=== PATIENT | female | born 1950 | race Caucasian/White ===

== ENCOUNTER 2019-12-09 00:59 | Outpatient (CLI) | payer MEDICARE, SELFPAY ==
--- NOTE | 2019-12-09 11:20 | DI.MAMMO_ITS ---
EXAM: MAMMO SCREENING CLINICAL HISTORY: SCREENING, Z12.31 TECHNIQUE: Mammograms were interpreted according to the usual protocol including computer analysis w [employer] CAD system, tomosynthesis and C-view imaging. COMPARISON: . 2018 FINDINGS: The breasts are composed of heterogeneously dense fibroglandular densities, Breast Density category C . No suspicious masses or suspicious microcalcifications are seen. No skin thickening or abnormal axillary lymph nodes are seen. There has been no significant change from prior exams. IMPRESSION: BIRADS Category 1, negative mammogram. Yearly screening mammography is recommended. BREAST DENSITY: The mammogram demonstrates the patient's breast tissue is dense. Dense breast tissue is very common and is not abnormal but dense breast tissue can make it harder to find cancer on a ma mmogram. Also, dense breast tissue may increase their breast cancer risk. This information about the result of the mammogram report was provided to the patient to raise their awareness. Use this report when you speak with the patient about their risks for breast cancer, which includes their family hist ory. At that time, you may recommend for more screening tests (Ultrasound or MRI) as they might be us eful based on their risk. A negative radiographic report should not delay biopsy if a dominant or clinically suspicious mass is present. Up to ten percent of cancers are not identified on mammography. A negative report may reinforce clinical impression. Adenosis and dense breasts may obscure an underlying neoplasm. False positive reports average 6 to 10%.
== END 2019-12-09 01:19 ==
PROVIDERS: PCP Family Medicine; Visit Provider Family Medicine
DX: Z12.31 Encounter for screening mammogram for malignant neoplasm of breast (principal)
CPT/HCPCS: 77063; 77067

== ENCOUNTER 2020-07-13 08:42 | Outpatient (REF) | payer MEDICARE, SELFPAY ==
[2020-07-13 21:18] LABS: HCT 40.5 % (36.0-46.0); HGB 12.8 g/dL (11.2-15.7); MCHC 31.6 % (32.0-36.0); MCV 88.6 fL (80-95); MPV 10.2 fL (8.0-11.0); Platelet Count 178 10^3/uL (130-400); RBC 4.57 10^6/uL (3.93-5.22); RDW 13.5 % (11.7-14.6); WBC 5.51 10^3/uL (4.4-10.8)
[2020-07-13 21:31] LABS: ALT 23 U/L (14-59); AST 18 U/L (15-37); Albumin 3.8 g/dL (3.4-5.0); Alkaline Phosphatase 62 U/L (46-116); Anion Gap 5.3 mmol/L (3-11); BUN 28 mg/dL (7-18); Bilirubin, Total 0.4 mg/dL (0.2-1.0); CO2 30.7 mmol/L (21.0-32.0); CREATININE 0.92 mg/dL (0.55-1.02); Calcium 8.8 mg/dL (8.5-10.1); Calculated LDL 102 mg/dL (<100); Chloride 111 mmol/L (98-107); Cholesterol 186 mg/dL (<200); Glucose 119 mg/dL (74-106); HDL Cholesterol 62 mg/dL (40-60); Potassium 5.2 mmol/L (3.5-5.1); Sodium 147 mmol/L (136-145); Total Protein 7.3 g/dL (6.4-8.2); Triglyceride 113 mg/dL (<150)
== END 2020-07-13 09:02 ==
LOC: NCHCN 08:42
PROVIDERS: PCP Family Medicine; Visit Provider Family Medicine
DX: I10 Essential (primary) hypertension (principal); E11.9 Type 2 diabetes mellitus without complications
CPT/HCPCS: 80053; 80061; 85027

== ENCOUNTER 2021-07-20 09:45 | Outpatient (REF) | payer MEDICARE, SELFPAY ==
[2021-07-20 16:23] LABS: ALT 22 U/L (14-59); AST 16 U/L (15-37); Albumin 3.9 g/dL (3.4-5.0); Alkaline Phosphatase 70 U/L (46-116); BUN 24 mg/dL (7-18); Bilirubin, Total 0.4 mg/dL (0.2-1.0); Calcium 8.8 mg/dL (8.5-10.1); Calculated LDL 87 mg/dL (<100); Chloride 106 mmol/L (98-107); Cholesterol 168 mg/dL (<200); Estimated GFR 54.66 (mL/min/1.73m2); Glucose 111 mg/dL (74-106); HDL Cholesterol 63 mg/dL (40-60); Sodium 143 mmol/L (136-145); Total Protein 7.2 g/dL (6.4-8.2); Triglyceride 94 mg/dL (<150)
[2021-07-21 01:34] LABS: Vitamin D 25 Total 17.4 ng/mL (30-100)
== END 2021-07-20 09:46 | disposition home or self-care (01) ==
LOC: NCHCN 09:45
PROVIDERS: PCP Family Medicine; Referring Provider Family Medicine; Visit Provider Family Medicine
DX: E11.9 Type 2 diabetes mellitus without complications (principal); I10 Essential (primary) hypertension; E66.9 Obesity, unspecified
CPT/HCPCS: 80053; 80061; 82306

== ENCOUNTER 2023-04-04 02:13 | Outpatient (CLI) | payer MEDICARE, SELFPAY ==
--- NOTE | 2023-04-04 | DI.MAMMO_ITS ---
Exam(s) MAMMO SCREENING EXAM: MAMMO SCREENING CLINICAL HISTORY: SCREENING, Z12.31. TECHNIQUE: Bilateral full field digital CC and MLO mammographic images were obtained with 3D tomosyn thesis and utilizing computer aided detection (CAD). COMPARISON: Prior mammograms were reviewed. FINDINGS: There has been no significant change in the appearance and distribution of the fibroglandular tissue. Asymmetric tissue medially in the right breast is unchanged from prior studies. There are no new spiculated masses nor malignant appearing microcalcification groups. There is no significant architectural distortion nor skin thickening-retraction. IMPRESSION: No radiographic evidence of malignancy. BI-RADS Category 1 - Negative Breast Density - Category C - Heterogeneously dense Breast density Category C or D implies that the patient has dense breast tissue. Dense breast tissue can make it harder to find cancer on a mammogram. Dense breast tissue is also associated with an incr eased risk of breast cancer. This information about the result of the mammogram report was provided to the patient to raise their awareness. Use this report when you speak with the patient about their risks for breast cancer, which includes their family history. At that time, you may recommend additional screening tests (Ultrasoun d or MRI) as these tests may add significant information. A negative radiographic report should not delay biopsy if a dominant or clinically suspicious mass is present. Up to ten percent of cancers are not identified on mammography. A negative report may reinforce clinical impression. Adenosis and dense breasts may obscure an underlying neoplasm. False positive reports average 6 to 10%. Patient will receive a letter notifying them of these results.
== END 2023-04-04 02:33 ==
LOC: DI 02:14
PROVIDERS: PCP Family Medicine; Visit Provider Family Medicine
DX: Z12.31 Encounter for screening mammogram for malignant neoplasm of breast (principal)
CPT/HCPCS: 77063; 77067

== ENCOUNTER 2023-07-18 15:53 | Outpatient (REF) | payer MEDICARE, SELFPAY ==
[2023-07-18 17:37] LABS: HCT 43.8 % (36.0-46.0); HGB 13.6 g/dL (11.2-15.7); MCH 28.3 pg (27.0-33.0); MCHC 31.1 % (32.0-36.0); MCV 91 fL (80-95); MPV 9.9 fL (8.0-11.0); Platelet Count 200 10^3/uL (130-400); RBC 4.81 10^6/uL (3.93-5.22); RDW 13.6 % (11.7-14.6); RDW-SD 45.8 fL; WBC 6.67 10^3/uL (4.4-10.8)
[2023-07-18 17:59] LABS: Hemoglobin A1C 6.2 % (<5.7)
[2023-07-18 18:16] LABS: ALT 23 U/L (14-59); AST 15 U/L (15-37); Albumin 3.8 g/dL (3.4-5.0); Alkaline Phosphatase 82 U/L (46-116); Anion Gap 5.1 mmol/L (3-11); BUN 28 mg/dL (7-18); Bilirubin, Total 0.7 mg/dL (0.2-1.0); CO2 30.9 mmol/L (21.0-32.0); Calcium 8.7 mg/dL (8.5-10.1); Calculated LDL 81 mg/dL (<100); Chloride 104 mmol/L (98-107); Cholesterol 158 mg/dL (<200); Estimated GFR 59.49 (mL/min/1.73m2); Glucose 141 mg/dL (74-106); HDL Cholesterol 61 mg/dL (40-60); Potassium 4.8 mmol/L (3.5-5.1); Sodium 140 mmol/L (136-145); Total Protein 7.1 g/dL (6.4-8.2); Triglyceride 83 mg/dL (<150)
== END 2023-07-18 15:54 | disposition home or self-care (01) ==
LOC: NCHCN 15:53
PROVIDERS: PCP Family Medicine; Visit Provider Family Medicine
DX: I10 Essential (primary) hypertension (principal); E11.9 Type 2 diabetes mellitus without complications; E66.9 Obesity, unspecified
CPT/HCPCS: 80053; 80061; 85027; 83036

== ENCOUNTER 2025-08-29 16:57 | Emergency (ER) | payer MEDICARE, SELFPAY ==
[2025-08-29 17:05] VITALS: BP 203/83; PULSE 95; RESP 12; TEMP 36.6; O2SAT 97
--- NOTE | 2025-08-29 18:45 | DI.CT_ITS ---
Exam(s) CT ABDOMEN PELVIS W EXAM: CT ABDOMEN PELVIS W CLINICAL HISTORY: L. flank pain, N/V. TECHNIQUE: Imaging Protocol: Axial computed tomography images with coronal and sagittal reformatted images were created and reviewed CONTRAST MATERIAL: Intravenous: Omnipaque 350 Contrast volume:100 ml Oral: no COMPARISON: No exams were available for comparison FINDINGS: ABDOMEN and PELVIS: Lung Bases: No acute findings. Severe coronary artery calcifications. Liver: Normal density. No suspicious mass. Gallbladder and biliary tract: There is a large stone in the gallbladder fundus. There is an additional stone which is either in the gallbladder neck or proximal cystic duct. No wall thickening or pericholecystic fluid. No biliary dilation. Pancreas: Normal density. No abnormal calcifications or inflammatory process. No evidence of mass. Spleen: Enlarged at 14.5 cm in length. Peripheral calcification. Kidneys: Normal size, contour and axis. No radiodense stones. No obstructive uropathy. No suspicious masses seen. Adrenal glands: No masses seen. Vasculature: Abdominal aorta non-dilated. Soft tissues: Unremarkable. Bladder: No gross wall thickening. No calculi.No focal mass. Bowel: No obstruction. No bowel wall thickening. Appendix normal. There is mild diverticulosis. There is a calcified diverticulum of the distal sigmoid. No evidence of diverticulitis. Peritoneal cavity: No ascites. No focal collection. No mesenteric inflammatory response. No free air. Bones: Unremarkable for age. Reproductive organs: Unremarkable. Lymph nodes: No pathologically enlarged lymph nodes. IMPRESSION:: There is a of stone during 1.8 cm in the gallbladder neck as well as additional large stone, 3 cm in the gallbladder lumen. No findings to suggest acute cholecystitis. No biliary dilatation. Splenomegaly. The preliminary [facility] report was reviewed. RADIATION DOSE DELIVERED: Total DLP DATA REPOSITORY: All CT scans at this facility are submitted to the National Radiology Data Registry (NRDR) Dose Index Registry (DIR) with the [employer] (A[employer]). RADIATION OPTIMIZATION: All CT scans at this facility use at least one of these dose optimization techniques: automated exposure control; mA and/or kV adjustment per patient size (includes targeted exams where dose is matched to clinical indication); or iterative reconstruction.
--- NOTE | 2025-08-29 18:45 | DI.RAD_ITS ---
Exam(s) XR TIB/FIB LT EXAM: XR TIB/FIB LT CLINICAL HISTORY: cellulitis, eval osteo. TECHNIQUE: 2D digital imaging was performed. Two views. COMPARISON: No exams were available for comparison FINDINGS: BONES: No acute fracture is present. There is a question of periosteal reaction involving the mid fibula versus artifact related to edema. There are severe degenerative changes at the knee. There are prominent calcaneal spurs. Significant degenerative changes are noted in the visualized portions of the foot. SOFT TISSUE: Diffuse soft tissue swelling. Vascular calcifications. Soft tissue calcifications consistent with chronic stasis. IMPRESSION: Severe soft tissue edema of the lower leg. Question of periosteal reaction of the mid fibula. MRI could be performed for further evaluation. The preliminary [facility] report was reviewed. DATA REPOSITORY: RADIATION DOSE DELIVERED:
--- NOTE | 2025-08-29 19:13 | ED.GENADUL_ITS ---
Discharge Plan Disposition Patient Disposition: Home Condition: Stable Discharge Details Clinical Impression: Cellulitis and abscess of left lower extremity, Diabetic ulcer of ankle Primary Care Provider: Emmanuelle Ochoa ED Provider: Lillian Martinez Home Meds and New Rx's Prescriptions: New cephalexin 500 mg capsule 500 mg PO QID 9 Days Qty: 36 0RF sulfamethoxazole-trimethoprim [Bactrim DS] 800-160 mg tablet 1 tab PO Q12H 9 Days Qty: 18 0RF No Action furosemide 20 mg tablet 20 mg PO DAILY Patient Comments: TAKE ONE TABLET BY MOUTH EVERY MORNING FOR LEG EDEMA lisinopril 20 mg tablet 20 mg PO DAILY Patient Comments: TAKE ONE TABLET BY MOUTH EVERY DAY Discharge Instructions Instructions: Cellulitis (Skin Infection), Adult ED Additional Instructions: You were seen in the emergency department today for evaluation of a lower extremity infection and nausea with vomiting. In our department you do full physical examination performed, and you had laboratory studies that were quite reassuring. Specifically, there was no evidence of elevation in your white blood cell count, no anemia, your electrolytes look safe and healthy, and your inflammatory markers were quite low. There was no sign of damage to your heart, and your urine did not have any concerning infectious findings other than a very small amount of blood and nitrates, which can be found in certain bacteria that live in the stool and skin. You had a CT scan of your belly that showed some incidental findings such as gallstones and diverticulosis, but did not show any concerning symptoms to explain your vomiting. You had an x-ray of your leg, which does show swelling consistent with a cellulitis (infection in the skin and soft tissue) that we were first concerned for. You did not have any obvious or severe changes to the bones, and the negative inflammatory markers are very reassuring. I have referred you to establish with a terminal superintendent, and should be evaluated within the next week. At that time, they may recommend additional imaging studies to evaluate that small area and ensure that you are healing as expected. Please take all the antibiotics that I prescribed you until they are gone, even if you start to feel better. Maintain good hydration and nutrition, and follow- up with your PCP to discuss this visit and any symptoms that change, worsen, or persist. You can always return to the emergency department if you develop a fever, have worsening of your leg swelling, or have any other symptoms that cause you concern. Thank you for allowing us to be part of your care. Referrals: Virgie Rodrigues DPM [[facility] STAFF PHYSICIAN, Podiatry] - 1 week HPI General Mode of arrival: ambulatory . Date/Time Provider Initiated Documentation: 08/29/25 18:14 . Limitations to Documentation: no limitations . Information obtained by: patient, family and old records reviewed . HPI Narrative: This is a 74-year-old female patient with a past medical history significant for diabetes, presenting for evaluation of lower extremity infection as well as nausea with vomiting. The patient reports that for the last several weeks she has had worsening swelling, redness, and multiple scabs over her left lower extremity. She states that she has a habit of picking at the scabs, has tried multiple topical cleansers at home, has not been on antibiotics for this condition. She reports that she became very very worried that she was going to lose her leg, prompting her to seek care today. Additionally, today she developed nausea and had a few episodes of dry heaving. She endorses some left flank pain. States that she has had a normal bowel movement for her (often has diarrhea due to her glipizide), has a history of but no other surgical history, denies chest pain, fever or chills, new loss of sensation or strength in her lower extremities. Related Data Home Medications ?Medication ?Instructions ?Recorded ?Confirmed cephalexin 500 mg capsule 500 mg PO QID 9 days #36 cap s 08/29/25 furosemide 20 mg tablet 20 mg PO DAILY 08/29/2508/12 lisinopril 20 mg tablet 20 mg PO DAILY 08/29/2508/12 sulfamethoxazole 800 1 tab PO Q12H 9 days #18 tab s 08/29/25 mg-trimethoprim 160 mg tablet (Bactrim DS) Previous Rx's ?Medication ?Instructions ?Recorded cephalexin 500 mg capsule 500 mg PO QID 9 days #36 cap s 08/29/25 sulfamethoxazole 800 1 tab PO Q12H 9 days #18 tab s 08/29/25 mg-trimethoprim 160 mg tablet (Bactrim DS) Allergies Allergy/AdvReac Type Severity Reaction Status Date / Time No Known Allergies Allergy Unverified 08/29/25 21:31 General Stated Complaint: GenMedical TEVIN: 3 Exam Narrative Exam Narrative: Gen: Awake and alert, in no apparent distress HEENT: Non-icteric sclera Neck: Supple Lungs: No apparent respiratory distress, normal respiratory effort. CV: Appears well perfused, heart with regular rate and rhythm, strong distal pulses Abdomen: Non-distended, soft, nontender to palpation without rigidity, rebound, or guarding. There is no CVA tenderness, no overlying skin changes. MSK: Moves 4 extremities without apparent limitation in ROM. The patient has peripheral edema bilaterally, left greater than right, left lower extremity with redness, induration, and warmth compared to the contralateral side, with numerous scabs. No fluctuance or purulent drainage. Right lower extremity with a small area of redness on the anterior roman. The patient's bilateral feet have strong DP pulses. Skin: Visualized skin as noted above Neuro: Normal Gait, no obvious focal deficits or facial asymmetry. Speaks in full, clear sentences. Psych: Appropriate for situation. Course Vital Signs Vital signs: Vital Signs Temperature 36.6 C 08/29/25 17:05 Pulse 95 H 08/29/25 17:05 Respiratory Rate 12 08/29/25 17:05 Blood Pressure 203/83 H 08/29/25 17:05 Pulse Oximetry 97 08/29/25 17:05 Temperature 36.6 C 08/29/25 17:05 Temperature Source Oral 08/29/25 17:05 Pulse 95 H 08/29/25 17:05 Respiratory Rate 12 08/29/25 17:05 Blood Pressure 203/83 H 08/29/25 17:05 Blood Pressure Position Sitting 08/29/25 17:05 Pulse Oximetry 97 08/29/25 17:05 Oxygen Delivery Method Room Air 08/29/25 17:05 Oxygen Flow Rate 0 08/29/25 17:05 Medical Decision Making This is a 74-year-old female patient presenting for evaluation of a lower extremity infection as well as nausea with vomiting and flank pain. My differential includes but is not limited to intra-abdominal pathologies including UTI, pyelonephritis, nephrolithiasis, considered diverticulitis, bowel obstruction, appendicitis, gastroenteritis, gastritis, pancreatitis, mesenteric ischemia and aortic pathology. I also considered cellulitis, osteomyelitis, sepsis/bacteremia. The patient has no evidence for acute arterial occlusion, DVT was considered though an infectious abnormality is far more likely given the exam. We will obtain labs to include CBC, CMP, magnesium, troponin, and lipase. I will also obtain lactate and inflammatory markers. I will obtain a urinalysis, a CT of the abdomen and pelvis, and an x-ray of the left lower extremity. We will provide the patient with a dose of Zofran and Tylenol for initial management of pain. -I independently interpreted the laboratory studies, which show no significant leukocytosis, anemia, or thrombocytopenia. The chemistry panel is without evidence of electrolyte abnormality, kidney dysfunction, or liver injury. Lactate is low, as are the inflammatory markers. Initial troponin negative and without interval increase in 1 hour delta recheck. Lipase is not elevated. Urinalysis with small blood and positive nitrates, with few epithelial cells and no pyuria, making acute urinary tract infection in the absence of dysuria and hematuria symptoms less likely. I reviewed the patient's imaging, her CT abdomen and pelvis does not show any evidence of renal stones, or other acute pathology to explain her nausea. She did have improvement and was able to tolerate oral intake after Zofran doses. She did have some incidental findings including diverticulosis without diverticulitis, cholelithiasis, and splenomegaly. X-ray reveals diffuse edema consistent with the external evidence of cellulitis. Radiology questions a periosteal reaction of the fibula, I have a lower concern for osteomyelitis in this patient with normal inflammatory markers and do not have an ability to get an MRI with and without contrast as recommended. However, I feel that it is reasonable to initiate oral antibiotics, and I have referred her for podiatry reevaluation in the next week so that she can have a reevaluation of her cellulitis and diabetic wounds, and potential repeat imaging at that time can be done. I provided the patient with cephalexin and Bactrim. Prescriptions to her pharmacy were sent for same. At this time, the patient has had a full medical evaluation and is safe for discharge to home. They are hemodynamically stable, ambulatory, and tolerating PO. They are understanding of the follow-up plan and return precautions. They left our facility without incident. Lillian Martinez MD [facility] All Active Problems (Updated 08/29/25 @ 22:18 by Lillian Martinez MD) Diabetic ulcer of ankle (Acute) Cellulitis and abscess of left lower extremity (Acute) Social History Smoking/Tobacco Use Status: Never Smoking risk assessment performed?: Yes Alcohol Intake: never Drug use: Never Do you feel safe at home: Yes Do you feel safe in your relationship?: Yes
[2025-08-29 19:41] LABS: Abs Immature Grans 0.02 10^3/uL (0.0-0.06); HCT 42.2 % (36.0-46.0); HGB 13.7 g/dL (11.2-15.7); Immature Grans % 0.3 %; MCH 27.5 pg (27.0-33.0); MCHC 32.5 % (32.0-36.0); MCV 85 fL (80-95); MPV 9.1 fL (8.0-11.0); Platelet Count 164 10^3/uL (130-400); RBC 4.98 10^6/uL (3.93-5.22); RDW 14.5 % (11.7-14.6); RDW-SD 44.1 fL; WBC 5.95 10^3/uL (4.4-10.8)
[2025-08-29 19:43] LABS: ESR 14 mm/hr (0-30)
[2025-08-29] MEDS: ACETAMINOPHEN 1,000 MG/100 ML BAG 400 MG IVPB (19:44)
[2025-08-29] MEDS: Ondansetron 4 MG/2 ML VIAL IVP ×2 (19:45→21:34)
[2025-08-29 19:56] VITALS: BP 203/83; PULSE 95; RESP 12; TEMP 36.6; O2SAT 97
[2025-08-29 20:02] LABS: ALT 24 U/L (14-59); AST 21 U/L (15-37); Albumin 3.8 g/dL (3.4-5.0); Alkaline Phosphatase 92 U/L (46-116); Anion Gap 9.1 mmol/L (3-11); BUN 18 mg/dL (7-18); Bilirubin, Total 0.9 mg/dL (0.2-1.0); C-Reactive Protein 0.56 mg/dL (<or=0.5); CO2 28.9 mmol/L (21.0-32.0); Calcium 9.0 mg/dL (8.5-10.1); Chloride 102 mmol/L (98-107); Estimated GFR 76.79 (mL/min/1.73m2); Glucose 124 mg/dL (74-106); Lipase 18 U/L (<78); Magnesium 2.1 mg/dL (1.8-2.4); Potassium 4.0 mmol/L (3.5-5.1); Sodium 140 mmol/L (136-145); Total Protein 8.0 g/dL (6.4-8.2); Troponin I 9 ng/L (<or=51)
[2025-08-29 20:04] VITALS: BP 169/67
[2025-08-29] MEDS: Omnipaque 350 MG/ML 100 ML BTL IJ (20:36)
[2025-08-29] MEDS: Normal Saline - Diluent 50 ML VIAL IJ (20:37)
[2025-08-29 21:06] LABS: Troponin I 10 ng/L (<or=51)
[2025-08-29 21:19] VITALS: RESP 18
[2025-08-29] MEDS: Ketorolac 15 MG/ML VIAL IVP (21:34)
--- NOTE | 2025-08-29 21:47 | DI.[facility]_ITS ---
PROCEDURE INFORMATION: Exam: CT Abdomen And Pelvis With Contrast Exam date and time: 08/29/2025 8:44 PM Age: 74 years old Clinical indication: Nausea and vomiting; Abdominal pain; Left; L. Flank pain, n/v TECHNIQUE: Imaging protocol: Computed tomography of the abdomen and pelvis with contrast. COMPARISON: No relevant prior studies available. FINDINGS: Lungs: Lung bases are clear. Liver: The liver has a normal appearance. Gallbladder and biliary ducts: A 2.9 cm in diameter stone is present within the gallbladder fundus. 1.8 cm stone is present within the cystic duct. No gallbladder wall thickening or pericholecystic fluid. Pancreas: The pancreas is atrophic. Spleen: The spleen measures 14.5 cm in length. Some rim calcifications are present along the lateral margins of the spleen. Adrenal glands: The adrenal glands have a normal appearance. Kidneys and ureters: The kidneys are normal in size. No hydronephrosis. No hydroureter or ureterolithiasis. Low-density left cortical renal cysts are noted. Stomach and bowel: A rim calcified 1.8 cm soft tissue mass is present adjacent to the sigmoid colon suggesting a calcified diverticulum (series 4/image 58 and series 8/image 103). Appendix: The appendix is thin walled. Intraperitoneal space: Unremarkable. No free air. No significant fluid collection. Vasculature: There are scattered atheromatous calcifications throughout the aorta and iliac arteries. Lymph nodes: No enlarged lymph nodes. Urinary bladder: The bladder is thin walled and fluid filled. Reproductive: The uterus has a normal appearance. Bones/joints: Bones have a normal appearance. No acute fracture or suspicious bone lesion. Soft tissues: Unremarkable. IMPRESSION: 1. Cholelithiasis. No findings to suggest choledocholithiasis or acute cholecystitis; however, a stone appears lodged in the cystic duct. 2. No other acute intra-abdominal findings. 3. Normal appendix. 4. Splenomegaly. Dictated and Authenticated by: Alisia Franklin MD. Orderin [facility] Inocencio Snyder MD
--- NOTE | 2025-08-29 21:50 | DI.[facility]_ITS ---
PROCEDURE INFORMATION: Exam: XR Left Tibia and Fibula Exam date and time: 08/29/2025 9:01 PM Age: 74 years old Clinical indication: Other: Cellulitis, eval osteo; Additional info: Cellulitis, eval osteo. PT sts diabetic, having trouble w lt lower leg x 3 wks TECHNIQUE: Imaging protocol: Radiologic exam of the left tibia and fibula. Views: 2 views. COMPARISON: No relevant prior studies available. FINDINGS: Bones/joints: No acute fracture or dislocation. Although difficult to characterize, there may be some periosteal reaction within the fibular diaphysis. There is marked calcaneal spurring. Severe degenerative changes are present at the knee joint. Soft tissues: Severe soft tissue swelling and edema is present throughout the subcutaneous fat of the inferior left lower extremity. There are scattered atheromatous vascular calcifications throughout the soft tissues. IMPRESSION: 1. Marked edema and soft tissue swelling throughout the subcutaneous fat of the inferior left lower extremity. Differential considerations include edema and/or cellulitis. 2. Questionable periosteal reaction of the fibula. This can be associated with osteomyelitis. If further characterization is warranted, MRI of the left lower extremity with and without contrast is recommended. 3. Diffuse arterial atherosclerosis. Dictated and Authenticated by: Alisia Franklin MD. Orderin [facility]enc[facility] Snyder MD
[2025-08-29 22:02] LABS: Glucose Negative (Negative)
[2025-08-29 22:06] LABS: C & S Indicated? No
[2025-08-29] MEDS: Sulfameth/Trimeth DS TAB 1 TAB PO (22:49)
[2025-08-29] MEDS: Cephalexin 500 MG CAP, 4 CAPS/BTL PO (22:50)
[2025-08-29] MEDS: Sulfameth/Trimeth DS, 2 TABS/BTL 1 TAB PO (22:50)
[2025-08-29] MEDS: Cephalexin 500 MG CAP PO (22:50)
[2025-08-29 23:00] VITALS: BP 168/68; PULSE 86; RESP 18; O2SAT 98
== END 2025-08-29 23:00 | disposition home or self-care (01) ==
PROVIDERS: Emergency Provider Emergency Medicine; PCP Family Medicine
DX: L03.116 Cellulitis of left lower limb (principal); L02.416 Cutaneous abscess of left lower limb; E11.622 Type 2 diabetes mellitus with other skin ulcer; L97.329 Non-pressure chronic ulcer of left ankle with unspecified severity
CPT/HCPCS: 99285 ×2; 36415; 36416; 82962; 96375; 96376; 80053; 83690; 85652; 96365; 73590; 74177; 81003; 81015; 83605; 83735; 84484; 85025; 86140; J0131; J1885; J2405; J3490

== ENCOUNTER 2025-09-01 13:30 | Outpatient (REF) | payer MEDICARE, SELFPAY ==
[2025-09-01 21:47] LABS: Abs Immature Grans 0.01 10^3/uL (0.0-0.06); HCT 44.4 % (36.0-46.0); HGB 14.4 g/dL (11.2-15.7); Immature Grans % 0.2 %; MCH 27.5 pg (27.0-33.0); MCHC 32.4 % (32.0-36.0); MCV 85 fL (80-95); MPV 10.1 fL (8.0-11.0); Platelet Count 163 10^3/uL (130-400); RBC 5.23 10^6/uL (3.93-5.22); RDW 14.6 % (11.7-14.6); RDW-SD 44.5 fL; WBC 5.42 10^3/uL (4.4-10.8)
[2025-09-01 22:07] LABS: ALT 26 U/L (14-59); AST 19 U/L (15-37); Albumin 4.0 g/dL (3.4-5.0); Alkaline Phosphatase 82 U/L (46-116); Anion Gap 9.8 mmol/L (3-11); BUN 13 mg/dL (7-18); Bilirubin, Total 0.7 mg/dL (0.2-1.0); CO2 31.2 mmol/L (21.0-32.0); Calcium 9.1 mg/dL (8.5-10.1); Chloride 99 mmol/L (98-107); Estimated GFR 58.75 (mL/min/1.73m2); Glucose 150 mg/dL (74-106); Potassium 4.1 mmol/L (3.5-5.1); Sodium 140 mmol/L (136-145); Total Protein 7.7 g/dL (6.4-8.2)
== END 2025-09-01 13:31 | disposition home or self-care (01) ==
LOC: NCHCN 13:30
PROVIDERS: PCP Family Medicine; Visit Provider Family Medicine
DX: K80.20 Calculus of gallbladder without cholecystitis without obstruction (principal)
CPT/HCPCS: 80053; 85025

== ENCOUNTER → 2025-09-03 09:33 | Outpatient (BNVA) | payer MEDICARE, SELFPAY | PROVIDERS: PCP Family Medicine; Referring Provider Family Medicine; Visit Provider Podiatrist | DX: E11.622 Type 2 diabetes mellitus with other skin ulcer (principal); L97.921 Non-pressure chronic ulcer of unspecified part of left lower leg limited to breakdown of skin; L02.416 Cutaneous abscess of left lower limb; L03.116 Cellulitis of left lower limb; B35.1 Tinea unguium; I89.0 Lymphedema, not elsewhere classified; I73.89 Other specified peripheral vascular diseases; R60.0 Localized edema; R09.89 Other specified symptoms and signs involving the circulatory and respiratory systems; I83.93 Asymptomatic varicose veins of bilateral lower extremities; L65.9 Nonscarring hair loss, unspecified; R23.4 Changes in skin texture; L60.8 Other nail disorders; L60.2 Onychogryphosis | CPT/HCPCS: 99214; 29580; 11720; 11719; 29850 ==

== ENCOUNTER → 2025-09-15 00:47 | Outpatient (CLI) | payer MEDICARE, SELFPAY ==
--- NOTE | 2025-09-15 | DI.US_ITS ---
Exam(s) US ABDOMEN LIMITED EXAM: US ABDOMEN LIMITED CLINICAL HISTORY: GALLSTONES,K80.20,CALCULUS OF GB TECHNIQUE: Ultrasound abdomen performed using standard protocol. COMPARISON: CT CT ABDOMEN PELVIS W from 08/29/2025 FINDINGS: PANCREAS: Normal where visualized. LIVER: Normal. Hepatopetal flow in the Portal Vein. The liver measures in 13.8 cm length. No evidence of a hepatic mass. GALLBLADDER:There are gallstones present. The largest measures 3.6 cm. There is an immobile stones seen in the gallbladder neck measuring 1.7 cm. No evidence of wall thickening. No pericholecystic fluid identified. BILIARY SYSTEM: Common bile duct measures < 7 mm. No intrahepatic biliary ductal dilation. AYALA'S SIGN: Negative. RIGHT KIDNEY: Kidney is normal in size. No evidence of renal calculi. No evidence of hydronephrosis. No renal mass or cyst identified. ASCITES: None seen. IMPRESSION: 1. Cholelithiasis. There is an immobile stone seen in the gallbladder neck. 2. There is no biliary ductal dilatation. 3. There is a negative sonographic Ayala sign. DATA REPOSITORY:
== END ==
LOC: DI 00:47
PROVIDERS: PCP Family Medicine; Visit Provider Family Medicine
DX: K80.80 Other cholelithiasis without obstruction (principal)
CPT/HCPCS: 76705

== ENCOUNTER → 2025-09-22 11:06 | Outpatient (BNVA) | payer MEDICARE, SELFPAY | PROVIDERS: PCP Family Medicine; Referring Provider Family Medicine; Visit Provider Podiatrist | DX: I89.0 Lymphedema, not elsewhere classified (principal); L97.921 Non-pressure chronic ulcer of unspecified part of left lower leg limited to breakdown of skin; E11.622 Type 2 diabetes mellitus with other skin ulcer; L03.116 Cellulitis of left lower limb; L02.416 Cutaneous abscess of left lower limb; E11.51 Type 2 diabetes mellitus with diabetic peripheral angiopathy without gangrene | CPT/HCPCS: 29580; 29850 ==

== ENCOUNTER 2025-10-31 15:22 | Emergency (ER) | payer MEDICARE, SELFPAY ==
[2025-10-31 15:36] VITALS: BP 168/65; PULSE 101; TEMP 36.3; O2SAT 98
[2025-10-31 15:45] VITALS: BP 168/65; PULSE 101; RESP 20; TEMP 36.3; O2SAT 98
--- NOTE | 2025-10-31 15:45 | DI.RAD_ITS ---
Exam(s) XR ABDOMEN FLAT UPRIGHT EXAM: 2D digital imaging was performed. CLINICAL HISTORY: Constipation. COMPARISON: CT CT ABDOMEN PELVIS W from 08/29/2025 TECHNIQUE: Supine and upright views of the abdomen was performed. Five images were obtained. FINDINGS: LUNG BASES: Clear. BOWEL GAS PATTERN: There are mildly distended small and large bowel loops with scattered air-fluid levels seen. There is a paucity of stool throughout the colon. FREE AIR: None. CALCIFICATIONS: No radiopaque calcifications. OSSEOUS STRUCTURES: Normal for age. OTHER FINDINGS: None. IMPRESSION: 1. Scattered air-fluid levels seen in multiple mildly distended small large bowel loops. The findings favor ileus rather than obstruction. Please correlate clinically and follow-up accordingly. 2. The preliminary [facility] report was reviewed. DATA REPOSITORY: RADIATION DOSE DELIVERED:
--- NOTE | 2025-10-31 15:48 | W.ED.GENAD ---
Discharge Plan Disposition Patient Disposition: Home Condition: Stable Discharge Details Clinical Impression: Fecal impaction in rectum Primary Care Provider: Emmanuelle Ochoa ED Provider: Vika Alston Home Meds and New Rx's Prescriptions: No Action glipizide 10 mg tablet 5 mg PO DAILY ondansetron 4 mg tablet,disintegrating 4 mg PO Q6H ketoconazole 2 % cream 1 applic topical DAILY Qty: 120 6RF Rx Instructions: Apply to 1g to skin and toenails once daily furosemide 20 mg tablet 20 mg PO DAILY Patient Comments: TAKE ONE TABLET BY MOUTH EVERY MORNING FOR LEG EDEMA lisinopril 20 mg tablet 20 mg PO DAILY Patient Comments: TAKE ONE TABLET BY MOUTH EVERY DAY Discharge Instructions Instructions: Fecal Impaction (DC) Additional Instructions: We were able to get out some of the soft stool that is in your rectum. What ever else I did feel and there is soft. You may be able to have a normal bowel movement when you get home. Please continue to use the glycerin suppositories you may use 1 when you get home prior to attempting a bowel movement. You may also get a fleets enema which you can get [id number] and try that. Also continue with the MiraLAX. You were given some topical lidocaine gel to also help with pain. The CT shows no evidence for diverticulitis no obstruction or any abnormality other than a small amount of stool at the rectal vault. Labs show no evidence of infection or any electrolyte abnormality. If no success or able to have a bowel movement over the next 24 to 48 hours please return to the emergency department. Follow up with primary care provider in 3-5 days. Return to ED sooner if any worsening or concerns. Increase oral fluids. Follow up with primary care provider in 3-5 days. Return to ED sooner if any worsening or concerns. Stand Alone Forms: Portal Information Referrals: Emmanuelle Ochao [Primary Care Provider, Medicine] - 5 days Clinical Impression: Fecal impaction in rectum HPI General Mode of arrival: ambulatory. Date/Time Provider Initiated Documentation: 10/31/25 15:23. Limitations to Documentation: no limitations. Information obtained by: patient, family, RN notes reviewed and old records reviewed. HPI Narrative: 75 year old female presents to the ER with cc of rectal bowel impaction. She reports last normal BM was 1 week ago. Has tried Senokot, suppository, MiraLAX and a fleets enema at home which were unsuccessful. Patient is unable to tolerate due to pain. Past medical history includes peripheral artery disease, lymphedema, lower extremity edema, obesity, hypertension, diabetes mellitus, Related Data Home Medications ?Medication ?Instructions ?Recorded ?Confirmed furosemide 20 mg tablet 20 mg PO DAILY 08/29/25 10/31/25 lisinopril 20 mg tablet 20 mg PO DAILY 08/29/25 10/31/25 ketoconazole 2 % topical cream 1 applic topical DAILY #120 grams 09/03/25 10/31/25 glipizide 10 mg tablet 5 mg PO DAILY 09/18/25 10/31/25 ondansetron 4 mg disintegrating 4 mg PO Q6H 09/18/25 10/31/25 tablet Previous Rx's ?Medication ?Instructions ?Recorded ketoconazole 2 % topical cream 1 applic topical DAILY #120 grams 09/03/25 Allergies Allergy/AdvReac Type Severity Reaction Status Date / Time No Known Allergies Allergy Verified 10/31/25 15:42 General Stated Complaint: Nausea/Vomit/Diar TEVIN: 3 Review of Systems All systems reviewed & are unremarkable except as noted in HPI and below Constitutional Constitutional: Denies fever(s) and Denies headache(s) ENT Ears, Nose, Mouth, and Throat: Denies headache(s) Gastrointestinal Gastrointestinal: Reports as per HPI, Denies abdominal pain, Reports change in bowel habits, Reports constipation, Reports diarrhea, Denies nausea and Denies vomiting Neurologic Neurologic: Denies headache(s) Exam Const General: cooperative Nutritional Appearance: obese Orientation: alert, awake and oriented x3 Resp Effort & Inspection: normal respiratory effort and able to speak in complete sentences Auscultation: clear to auscultation bilaterally Cardio Rate: regular rate Rhythm: regular rhythm Heart Sounds: S1 normal and S2 normal GI Inspection: normal to inspection Palpation: soft Auscultation: normal bowel sounds Rectal Exam - female: fecal impaction and hemorrhoids Extrem General: edema Laterality: bilateral Course Vital Signs Vital signs: Vital Signs Temperature 36.3 C L 10/31/25 15:36 Pulse 101 H 10/31/25 15:36 Blood Pressure 168/65 H 10/31/25 15:36 Pulse Oximetry 98 10/31/25 15:36 Temperature 36.3 C L 10/31/25 15:36 Temperature Source Temporal Artery Scan 10/31/25 15:36 Pulse 101 H 10/31/25 15:36 Blood Pressure 168/65 H 10/31/25 15:36 Blood Pressure Position Supine 10/31/25 15:36 Pulse Oximetry 98 10/31/25 15:36 Oxygen Delivery Method Room Air 10/31/25 15:36 Oxygen Flow Rate 0 10/31/25 15:36 Procedure Rectal Dismpaction Date of Procedure: 10/31/25 Time of procedure: 20:09 Provider that performed the procedure: Vika Alston Indication: fecal impaction Patient Consented: Verbally Sedation administered by provider performing procedure: Yes Pre-procedure medication: Morphine (4 mg) Amount of pre-procedure medication(mg): 4 Technique: manual disimpaction with gloved finger Result: unable to disimpact (Moderate amount removed of soft brown stool) Patient Tolerated Procedure: other (Tolerated with difficulty) Complications: pain and unable to tolerate Procedure Description/Note: Soft brown stool noted in the rectal vault, patient tolerated with difficulty. Medical Decision Making 75 year old female presents to the ER with cc of rectal bowel impaction. She reports last normal BM was 1 week ago. Has tried Senokot, suppository, MiraLAX and a fleets enema at home which were unsuccessful. Patient is unable to tolerate due to pain. Past medical history includes peripheral artery disease, lymphedema, lower extremity edema, obesity, hypertension, diabetes mellitus, Informed by balance staff staker that patient did not tolerate the glycerin suppository very well due to pain. On patient reevaluation she appears uncomfortable. The x-ray shows a nonspecific bowel pattern and suspected ileus rather than obstruction. I did order lab work and an IV for possible pain control if we do need to disimpact the patient. And also to rule out obstruction versus some other etiology causing her symptoms. I did discuss this with the patient and her daughter who verbalized understanding. She did have a CT approximately 6 weeks ago per the daughter which showed some diverticulitis. CT shows no obstruction, there is stool noted near the rectal vault, patient is agreeable to pain medication and attempting the enema. 0: Morphine and Zofran were given and enema performed by ED balance staff staker. 1951: Only liquid diarrhea produced after enema, will attempt disimpaction. Attempted stool this impaction, there was some soft brown stool that was disimpacted, but I did feel was soft in the rectal vault. Will send patient home with the glycerin suppositories and fleets enema. Will also continue to encourage MiraLAX daily and increase oral fluids. Discussed plan of care with patient and family who verbalized understanding. Her daughter does say that she is not going to be able to take care of her mom at home however I do feel that with amount of stool in the rectal vault that is soft that if she attempts to have a bowel movement at home it will be successful. Instructed to return if unsuccessful. Patient discharged into the care of her family. This text was generated using [employer] dictation system, please disregard any oddities of phrase or misspellings. Imaging Data Radiologic Study: Imaging: X-Ray Radiologist's impression: Exam: XR Abdomen Exam date and time: 10/31/2025 4:04 PM Age: 75 years old Clinical indication: Constipation TECHNIQUE: Imaging protocol: Radiologic exam of the abdomen. Views: 2 Views. Upright and supine views. COMPARISON: CT ABDOMEN PELVIS W 08/29/2025 8:44 PM FINDINGS: Gastrointestinal tract: There is some mild gaseous prominence of small and large bowel. There are some scattered air-fluid levels on upright evaluation. Pattern nonspecific. Suspect ileus rather than obstruction. Intraperitoneal space: Normal. No free air. Bones/joints: Unremarkable for age. IMPRESSION: Nonspecific bowel pattern. Suspect ileus rather than obstruction. Thank you for allowing us to participate in the care of your patient. Dictated and Authenticated by: Cesia Goldstein MD Radiologic Study #2: Imaging: CT Scan Radiologist's impression: Coronary arteries: Coronary artery calcifications/stents identified. Liver: Mild, fatty liver. Gallbladder and biliary ducts: Gallstone again seen at the gallbladder neck level with a 2nd larger focus within the lumen. No definite distension. Pancreas: Normal. No ductal dilation. Spleen: Splenomegaly is unchanged from prior study. There are some peripheral calcifications along the serosal margin of the spleen laterally. No focal lesions. Adrenal glands: Normal. No mass. Kidneys and ureters: Small bilateral renal cysts again seen. Renal perfusion is symmetric without hydronephrosis or hydroureter. Stomach and bowel: Moderate fecal material present at the rectal level without abnormal distension. There are some scattered air-fluid levels in the right colon. No abnormal bowel distension or wall thickening is noted. Appendix: No evidence of appendicitis. Intraperitoneal space: Unremarkable. No free air. No significant fluid collection. Vasculature: Mild atherosclerotic change again noted in the vasculature. Lymph nodes: Unremarkable. No enlarged lymph nodes. Urinary bladder: Unremarkable as visualized. Reproductive: Peripherally calcified right adnexal lesion, nonacute. Bones/joints: Unremarkable. No acute fracture. Soft tissues: Unremarkable. IMPRESSION: 1. No evidence to suggest constipated change or fecal impaction. 2. Gallstones with concern for possible gallstone at the gallbladder neck level. Overall appearance is unchanged from prior study. 3. No change splenomegaly. Thank you for allowing us to participate in the care of your patient. Dictated and Authenticated by: Cesia Goldstein MD Lab Data Lab results reviewed: Yes I reviewed the patient's lab results. Labs: Laboratory Tests Range/Units 10/31/25 17:03 WBC (4.4-10.8) 10^3/uL 7.28 RBC (3.93-5.22) 10^6/uL 4.56 Hgb (11.2-15.7) g/dL 12.5 Hct (36.0-46.0) % 40.1 MCV (80-95) fL 88 MCH (27.0-33.0) pg 27.4 MCHC (32.0-36.0) % 31.2 L RDW (11.7-14.6) % 15.3 H Plt Count (130-400) 10^3/uL 170 MPV (8.0-11.0) fL 9.4 Immature Gran % % 0.3 Neutrophils % % 75.8 Lymphocytes % % 12.8 Monocytes % % 9.2 Eosinophils % % 1.2 Basophils % % 0.7 Nucleated RBC % (0.0-0.3) % 0.0 Absolute Neutrophils (1.2-6.7) 10^3/uL 5.52 Absolute Lymphocytes (1.2-3.4) 10^3/uL 0.93 L Absolute Monocytes (0.1-0.8) 10^3/uL 0.67 Absolute Eosinophils (0.0-0.7) 10^3/uL 0.09 Absolute Basophils (0.0-0.2) 10^3/uL 0.05 Sodium (136-145) mmol/L 144 Potassium (3.5-5.1) mmol/L 3.9 Chloride (98-107) mmol/L 106 Carbon Dioxide (20.0-31.0) mmol/L 30.8 Anion Gap (3-11) mmol/L 7.2 BUN (9-23) mg/dL 16 Creatinine (0.55-1.02) mg/dL 0.79 Est GFR (CKD-EPI 2020) (mL/min/1.73m2) 70.75 Glucose (74-106) mg/dL 130 H Calcium (8.3-10.6) mg/dL 8.9 Magnesium (1.6-2.6) mg/dL 2.1 Total Bilirubin (0.2-1.2) mg/dL 0.8 AST (<34) U/L 30 ALT (10-49) U/L 26 Alkaline Phosphatase (46-116) U/L 98 Total Protein (5.7-8.2) g/dL 7.1 Albumin (3.2-5.0) g/dL 3.9 PFSH All Active Problems (Updated 10/31/25 @ 20:13 by Vika Alston NP) Fecal impaction in rectum (Acute) Parotitis (Acute) Mixed anxiety and depressive disorder (Acute) Diabetes mellitus (Chronic) 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
[2025-10-31] MEDS: Glycerin Adult Suppository JAR 1 SUPP PR (16:30)
--- NOTE | 2025-10-31 16:45 | DI.CT_ITS ---
Exam(s) CT ABDOMEN PELVIS W EXAM: CT ABDOMEN PELVIS W CLINICAL HISTORY: Constipation, rule out obstruction TECHNIQUE: Imaging Protocol: Axial computed tomography images with coronal and sagittal reformatted images were created and reviewed. CONTRAST MATERIAL: Intravenous: Omnipaque 350 Contrast volume:85 mL Oral: No COMPARISON: CT CT ABDOMEN PELVIS W from 08/29/2025 CR,XR XR ABDOMEN FLAT UPRIGHT from 10/31/2025 FINDINGS: ABDOMEN: Lung Bases: No acute abnormality. Liver: Normal density. No measurable mass. Portal, Superior Mesenteric, and Splenic Veins: Unremarkable. Gallbladder and Biliary Tract: Gallstones are present. There is calcification in the wall of the gallbladder. There is no biliary ductal dilatation. Pancreas: Normal density, no abnormal calcifications or inflammatory process. Spleen: The spleen is enlarged. Capsular calcification is present. Adrenals: No masses seen. Kidneys: Normal size, contour and axis. No radiodense stones or obstructive uropathy. There is a simple cyst in the left kidney. No follow-up is recommended. Abdominal Aorta: Abdominal portion non-dilated. Atherosclerotic calcification is present. Bowel: No obstruction or bowel wall thickening. There is a diverticulum seen in the duodenum adjacent to the pancreatic head. There is a small amount of stool in the colon particularly in the rectum. There are fluid-filled loops of small and large bowel which can be enterocolitis. Peritoneal Cavity: No ascites, collection or mesenteric inflammatory response. No free air. Lymph Nodes: Within normal limits. Bones: Within normal limits for the patient's age. Soft Tissues: Unremarkable. PELVIS: Bladder: Symmetric distention, no gross wall thickening. Reproductive Organs: Unremarkable as visualized. Lymph Nodes: Within normal limits. Bones: Within normal limits for the patient's age. IMPRESSION: 1. There is no evidence of bowel obstruction. 2. Fluid-filled loops of small and large bowel which can be seen with an enterocolitis. 3. Small amount of retained stool predominantly in the rectum. 4. Cholelithiasis. No biliary ductal dilatation. 5. The preliminary [facility] report was reviewed. RADIATION DOSE DELIVERED: 705.88mGy.cm Total DLP DATA REPOSITORY: All CT scans at this facility are submitted to the National Radiology Data Registry (NRDR) Dose Index Registry (DIR) with the [employer] (ACR). RADIATION OPTIMIZATION: All CT scans at this facility use at least one of these dose optimization techniques: automated exposure control; mA and/or kV adjustment per patient size (includes targeted exams where dose is matched to clinical indication); or iterative reconstruction.
--- NOTE | 2025-10-31 16:50 | DI.[facility]_ITS ---
PROCEDURE INFORMATION: Exam: XR Abdomen Exam date and time: 10/31/2025 4:04 PM Age: 75 years old Clinical indication: Constipation TECHNIQUE: Imaging protocol: Radiologic exam of the abdomen. Views: 2 Views. Upright and supine views. COMPARISON: CT ABDOMEN PELVIS W 08/29/2025 8:44 PM FINDINGS: Gastrointestinal tract: There is some mild gaseous prominence of small and large bowel. There are some scattered air-fluid levels on upright evaluation. Pattern nonspecific. Suspect ileus rather than obstruction. Intraperitoneal space: Normal. No free air. Bones/joints: Unremarkable for age. IMPRESSION: Nonspecific bowel pattern. Suspect ileus rather than obstruction. Dictated and Authenticated by: Cesia Goldstein MD. Orderin Gamaliel Sandy MD
[2025-10-31 17:21] LABS: Abs Immature Grans 0.02 10^3/uL (0.0-0.06); HCT 40.1 % (36.0-46.0); HGB 12.5 g/dL (11.2-15.7); Immature Grans % 0.3 %; MCH 27.4 pg (27.0-33.0); MCHC 31.2 % (32.0-36.0); MCV 88 fL (80-95); MPV 9.4 fL (8.0-11.0); Platelet Count 170 10^3/uL (130-400); RBC 4.56 10^6/uL (3.93-5.22); RDW 15.3 % (11.7-14.6); RDW-SD 49.1 fL; WBC 7.28 10^3/uL (4.4-10.8)
[2025-10-31 17:37] LABS: Magnesium 2.1 mg/dL (1.6-2.6)
[2025-10-31 17:39] LABS: ALT 26 U/L (10-49); AST 30 U/L (<34); Albumin 3.9 g/dL (3.2-5.0); Alkaline Phosphatase 98 U/L (46-116); Anion Gap 7.2 mmol/L (3-11); BUN 16 mg/dL (9-23); Bilirubin, Total 0.8 mg/dL (0.2-1.2); CO2 30.8 mmol/L (20.0-31.0); Calcium 8.9 mg/dL (8.3-10.6); Chloride 106 mmol/L (98-107); Glucose 130 mg/dL (74-106); Potassium 3.9 mmol/L (3.5-5.1); Sodium 144 mmol/L (136-145); Total Protein 7.1 g/dL (5.7-8.2)
[2025-10-31] MEDS: Omnipaque 350 MG/ML 100 ML BTL IJ (17:50)
[2025-10-31] MEDS: Normal Saline - Diluent 50 ML VIAL IJ (17:50)
--- NOTE | 2025-10-31 18:37 | DI.[facility]AD_ITS ---
PROCEDURE INFORMATION: Exam: CT Abdomen And Pelvis With Contrast Exam date and time: 10/31/2025 5:48 PM Age: 75 years old Clinical indication: Other: Constipation, rule out obstruction TECHNIQUE: Imaging protocol: Computed tomography of the abdomen and pelvis with contrast. Contrast material: 350; Contrast volume: 85 ml; Contrast route: INTRAVENOUS (IV); COMPARISON: CT ABDOMEN PELVIS W 08/29/2025 8:44 PM FINDINGS: Coronary arteries: Coronary artery calcifications/stents identified. Liver: Mild, fatty liver. Gallbladder and biliary ducts: Gallstone again seen at the gallbladder neck level with a 2nd larger focus within the lumen. No definite distension. Pancreas: Normal. No ductal dilation. Spleen: Splenomegaly is unchanged from prior study. There are some peripheral calcifications along the serosal margin of the spleen laterally. No focal lesions. Adrenal glands: Normal. No mass. Kidneys and ureters: Small bilateral renal cysts again seen. Renal perfusion is symmetric without hydronephrosis or hydroureter. Stomach and bowel: Moderate fecal material present at the rectal level without abnormal distension. There are some scattered air-fluid levels in the right colon. No abnormal bowel distension or wall thickening is noted. Appendix: No evidence of appendicitis. Intraperitoneal space: Unremarkable. No free air. No significant fluid collection. Vasculature: Mild atherosclerotic change again noted in the vasculature. Lymph nodes: Unremarkable. No enlarged lymph nodes. Urinary bladder: Unremarkable as visualized. Reproductive: Peripherally calcified right adnexal lesion, nonacute. Bones/joints: Unremarkable. No acute fracture. Soft tissues: Unremarkable. IMPRESSION: 1. No evidence to suggest constipated change or fecal impaction. 2. Gallstones with concern for possible gallstone at the gallbladder neck level. Overall appearance is unchanged from prior study. 3. No change splenomegaly. Dictated and Authenticated by: Cesia Goldstein MD. Orderin Gamaliel Sandy MD
[2025-10-31] MEDS: Na Phosphate Enema-Adult 133 ML BTL PR (19:12)
[2025-10-31] MEDS: MORPHine 10 MG/ML VIAL 2 MG IVP (19:12)
[2025-10-31] MEDS: MORPHine 2 MG/ML SYR (19:58)
== END 2025-10-31 20:15 | disposition home or self-care (01) ==
PROVIDERS: Emergency Provider Registered Nurse Emergency; PCP Family Medicine
DX: K56.41 Fecal impaction (principal)
CPT/HCPCS: 99284; 99285; 36415; 96374; 80053; 74019; 74177; 83735; 85025; J2270; J3490